=== PATIENT | male | born 1940 | race Caucasian/White ===

== ENCOUNTER 2016-10-24 18:19 | Inpatient (IN) | payer OTHER, MEDICARE ==
[~2016-10-24] VITALS: Ht 160 cm; Wt 74.1 kg
[~2016-10-24 18:19] MED LIST: ACIFEX; ASPI-515 PO; ATOR10TA PO; HYDR25TA6 PO; METF500T PO; PIOG15TA9 PO
[2016-10-24] MEDS ORDERED: SITA25TA PO (19:12)
[2016-10-24] MEDS ORDERED: HYDR-2440 PO (19:12)
[2016-10-24 20:10] LABS: ASPARTATE AMINO TRANSFERASE 24 U/L (15-37); BLOOD UREA NITROGEN 58 mg/dL (7-18)
[2016-10-24 20:16] LABS: IS PT STATUS REG ER OR PRE ER? YES
[2016-10-24] MEDS ORDERED: SODIUM CHLORIDE 0.9% 1,000ML IVBOLUS ONE ×2 (22:00→23:00)
[2016-10-24] MEDS ORDERED: SODIUM CHLORIDE FLUSH 10ML SYR IVF ONE (22:00)
[2016-10-24] MEDS ORDERED: CEFTRIAXONE PMX 1GM/50ML 50 ML ONE (22:56)
[2016-10-24] MEDS ORDERED: ATORVASTATIN 10 MG TABLET PO PRN (23:00)
[2016-10-24] MEDS ORDERED: LISI5TAB7 PO (23:03)
[2016-10-24] MEDS ORDERED: SODIUM CHLORIDE 0.9% 1,000 ML IV SCH (23:10)
[2016-10-24] MEDS ORDERED: DEXTROSE 50%, 50ML SYRINGE IVPush PRN (23:30)
[2016-10-24] MEDS ORDERED: POLYETHYLENE GLYCOL 17 GM PACKET PO PRN (23:30)
[2016-10-24] MEDS ORDERED: DEXTROSE 4 GM TAB.CHEW PO PRN (23:30)
[2016-10-24] MEDS ORDERED: GLUCAGON 1 MG IM PRN (23:30)
[2016-10-24] MEDS ORDERED: LABETALOL 5MG/ML 40ML VIAL IVPush PRN (23:30)
[2016-10-24] MEDS ORDERED: morphine SULFATE 10 MG/ML, 1ML IVPush PRN (23:30)
[2016-10-24] MEDS ORDERED: DOCUSATE 100 MG CAPSULE PO PRN (23:30)
[2016-10-24] MEDS ORDERED: CEFTRIAXONE 1,000 MG in SODIUM CHLORIDE 0.9% 50 ML IV SCH (23:30)
[2016-10-24] MEDS ORDERED: BISACODYL 10 MG SUPP PR PRN (23:30)
[2016-10-24] MEDS ORDERED: ONDANSETRON 2MG/ML, 2ML IVPush PRN (23:30)
[2016-10-24] MEDS ORDERED: ACETAMINOPHEN 325 MG TABLET PO PRN (23:30)
[2016-10-24] MEDS ORDERED: CEFTRIAXONE 1,000 MG in SODIUM CHLORIDE 0.9% 50 ML IV ONE (23:30)
[2016-10-25] MEDS ORDERED: CEFTRIAXONE PMX 1GM/50ML 50 ML IV SCH (00:38)
[2016-10-25 01:22] VITALS: BP 145/71
[2016-10-25] MEDS: HEPARIN 5,000 UNITS/ML, 1ML SQ SCH ×3 (01:46→20:28)
[2016-10-25 02:00] VITALS: BP 145/71
[2016-10-25 03:18] LABS: BLOOD UREA NITROGEN 50 mg/dL (7-18)
[2016-10-25] MEDS: INSULIN ASPART 100 UNITS/ML, PEN SQ-INSULIN SCH ×4 (07:00→21:07)
[2016-10-25] MEDS: SODIUM CHLORIDE FLUSH 10ML SYR IVF SCH ×2 (08:42→21:06)
[2016-10-25] MEDS: ASPIRIN 81 MG TABLET EC PO SCH (08:42)
[2016-10-25 08:50] VITALS: BP 147/71
[2016-10-25] MEDS: OXYcodone/APAP 10/325MG TABLET PO PRN ×2 (11:39→21:06)
[2016-10-25] MEDS: SODIUM CHLORIDE 0.45% 1,000 ML IV SCH (11:45)
[2016-10-25] MEDS: CEFTRIAXONE PMX 1GM/50ML 50 ML IV SCH (12:59)
[2016-10-25 15:00] VITALS: BP 139/72
[2016-10-25 19:29] VITALS: BP 159/79
[2016-10-25] MEDS: ATORVASTATIN 10 MG TABLET PO SCH (21:06)
[2016-10-26] MEDS: SODIUM CHLORIDE 0.45% 1,000 ML IV SCH (00:55)
[2016-10-26] MEDS: CEFTRIAXONE PMX 1GM/50ML 50 ML IV SCH ×2 (00:56→11:43)
[2016-10-26 00:59] VITALS: BP 133/59
[2016-10-26 01:44] VITALS: BP 145/66
[2016-10-26] MEDS: HEPARIN 5,000 UNITS/ML, 1ML SQ SCH ×3 (04:09→22:03)
[2016-10-26 06:22] LABS: BLOOD UREA NITROGEN 30 mg/dL (7-18)
[2016-10-26] MEDS: INSULIN ASPART 100 UNITS/ML, PEN SQ-INSULIN SCH ×4 (07:00→21:00)
[2016-10-26] MEDS: ASPIRIN 81 MG TABLET EC PO SCH (07:57)
[2016-10-26] MEDS: SODIUM CHLORIDE FLUSH 10ML SYR IVF SCH ×2 (07:57→22:03)
[2016-10-26] MEDS: OXYcodone/APAP 10/325MG TABLET PO PRN ×2 (07:57→18:27)
[2016-10-26 08:17] VITALS: BP 172/78
[2016-10-26] MEDS: SITAGLIPTIN 25MG TABLET PO SCH (11:00)
[2016-10-26] MEDS: AMLODIPINE 5 MG TABLET PO SCH ×2 (11:43→22:04)
[2016-10-26 13:55] VITALS: BP 196/83
[2016-10-26 19:02] VITALS: BP 163/83
[2016-10-26] MEDS: ATORVASTATIN 10 MG TABLET PO SCH (22:03)
[2016-10-27] MEDS: CEFTRIAXONE PMX 1GM/50ML 50 ML IV SCH ×2 (01:13→08:36)
[2016-10-27] MEDS: OXYcodone/APAP 10/325MG TABLET PO PRN (01:17)
[2016-10-27 02:51] VITALS: BP 185/95
[2016-10-27 04:44] VITALS: BP 162/81
[2016-10-27] MEDS: HEPARIN 5,000 UNITS/ML, 1ML SQ SCH (05:17)
[2016-10-27 05:50] LABS: BLOOD UREA NITROGEN 17 mg/dL (7-18)
[2016-10-27] MEDS: INSULIN ASPART 100 UNITS/ML, PEN SQ-INSULIN SCH (07:00)
[2016-10-27 07:01] VITALS: BP 159/81
[2016-10-27] MEDS ORDERED: AMLO10TA4 PO (07:30)
[2016-10-27] MEDS ORDERED: CEFD300C37 PO (07:30)
[2016-10-27] MEDS: SITAGLIPTIN 25MG TABLET PO SCH (08:37)
[2016-10-27] MEDS: ASPIRIN 81 MG TABLET EC PO SCH (08:37)
[2016-10-27] MEDS: SODIUM CHLORIDE FLUSH 10ML SYR IVF SCH (09:00)
[2016-10-27] MEDS ORDERED: AMLODIPINE 5 MG TABLET PO SCH (09:00)
== END 2016-10-27 10:05 | disposition home or self-care (01) | DRG 871 ==
LOC: ED 20:19 → EDIP 22:43 → 4EST 10-25 00:31 → DCLOUNGE 10-27 09:45
PROVIDERS: ADMIT Internal Medicine
DX: A41.9 Sepsis, unspecified organism (principal); G93.41 Metabolic encephalopathy; N17.0 Acute kidney failure with tubular necrosis; E87.2 Acidosis; N12 Tubulo-interstitial nephritis, not specified as acute or chronic; E87.5 Hyperkalemia; E11.22 Type 2 diabetes mellitus with diabetic chronic kidney disease; N18.9 Chronic kidney disease, unspecified; E11.65 Type 2 diabetes mellitus with hyperglycemia; E78.5 Hyperlipidemia, unspecified; I25.10 Atherosclerotic heart disease of native coronary artery without angina pectoris; M19.90 Unspecified osteoarthritis, unspecified site; I70.1 Atherosclerosis of renal artery; G89.29 Other chronic pain; Z66 Do not resuscitate; I12.9 Hypertensive chronic kidney disease with stage 1 through stage 4 chronic kidney disease, or unspecified chronic kidney disease; M48.06 Spinal stenosis, lumbar region; Z79.84 Long term (current) use of oral hypoglycemic drugs; M54.5 Low back pain
CPT/HCPCS: 36415; 70450; 71010; 72148; 74176; 76770; 80048; 80053; 81001; 82436; 82570; 82962; 83605; 84133; 84145; 84300; 84484; 85025; 87040; 87086; 93005; 96365; J0696; J1644; J1815; J7030

== ENCOUNTER 2016-10-30 14:14 | Inpatient (IN) | payer OTHER, MEDICARE ==
[~2016-10-30] VITALS: Ht 160 cm; Wt 74.3 kg
[~2016-10-30 14:14] MED LIST changes: -ALPR1TAB6 PO; -ATOR40TA78 PO; -GABA300C10 PO; -GABA600T2 PO; -GLIP5TAB22 PO; -METH750T2 PO; -RABE20TA26 PO; -SITA50TA PO
[2016-10-30 15:15] VITALS: BP 100/60
[2016-10-30] MEDS ORDERED: [UNRECOGNIZED DRUG - OTHER] PO SCH (16:00)
[2016-10-30] MEDS ORDERED: ONDANSETRON 2MG/ML, 2ML IVPush PRN (16:00)
[2016-10-30] MEDS ORDERED: ATORVASTATIN 10 MG TABLET PO PRN (16:00)
[2016-10-30] MEDS ORDERED: BISACODYL 10 MG SUPP PR PRN (16:00)
[2016-10-30] MEDS ORDERED: ACETAMINOPHEN PO SCH (16:00)
[2016-10-30] MEDS ORDERED: DOCUSATE 100 MG CAPSULE PO PRN (16:00)
[2016-10-30] MEDS ORDERED: POLYETHYLENE GLYCOL 17 GM PACKET PO PRN (16:00)
[2016-10-30] MEDS ORDERED: HYDROCODONE BIT PO SCH (16:00)
[2016-10-30] MEDS ORDERED: ACETAMINOPHEN 325 MG TABLET PO PRN (16:00)
[2016-10-30] MEDS ORDERED: GLUCAGON 1 MG IM PRN (16:30)
[2016-10-30] MEDS ORDERED: DEXTROSE 50%, 50ML SYRINGE IVPush PRN (16:30)
[2016-10-30] MEDS ORDERED: DEXTROSE 4 GM TAB.CHEW PO PRN (16:30)
[2016-10-30] MEDS: HEPARIN 5,000 UNITS/ML, 1ML SQ SCH (17:28)
[2016-10-30] MEDS: SODIUM CHLORIDE 0.9% 1,000 ML IV SCH (17:28)
[2016-10-30 20:00] VITALS: BP 125/80
[2016-10-30] MEDS: INSULIN ASPART 100 UNITS/ML, PEN SQ-INSULIN SCH (20:22)
[2016-10-30] MEDS: SODIUM CHLORIDE FLUSH 10ML SYR IVF SCH (20:28)
[2016-10-30] MEDS: OXYcodone/APAP 10/325MG TABLET PO PRN (20:29)
[2016-10-31 02:00] VITALS: BP 132/62
[2016-10-31] MEDS: SODIUM CHLORIDE 0.9% 1,000 ML IV SCH ×3 (03:46→23:30)
[2016-10-31] MEDS: HEPARIN 5,000 UNITS/ML, 1ML SQ SCH ×3 (05:07→21:27)
[2016-10-31 06:07] LABS: BLOOD UREA NITROGEN 45 mg/dL (7-18)
[2016-10-31 06:11] LABS: ASPARTATE AMINO TRANSFERASE 50 U/L (15-37)
[2016-10-31] MEDS: INSULIN ASPART 100 UNITS/ML, PEN SQ-INSULIN SCH ×4 (07:00→21:00)
[2016-10-31] MEDS: SODIUM CHLORIDE FLUSH 10ML SYR IVF SCH ×2 (08:18→21:27)
[2016-10-31 08:27] VITALS: BP 142/66
[2016-10-31] MEDS: ASPIRIN 81 MG TABLET EC PO SCH (08:33)
[2016-10-31] MEDS: AMLODIPINE 5 MG TABLET PO SCH (08:33)
[2016-10-31] MEDS: OXYcodone/APAP 10/325MG TABLET PO PRN ×2 (08:33→18:31)
[2016-10-31] MEDS ORDERED: CEFDINIR 300 MG CAPSULE PO SCH (09:00)
[2016-10-31 12:30] VITALS: BP 162/71
[2016-10-31] MEDS ORDERED: ERGOCALCIFEROL 50,000 UNIT CAPSULE PO SCH (15:30)
[2016-10-31] MEDS: CEFTRIAXONE PMX 1GM/50ML 50 ML IV SCH (16:23)
[2016-10-31 19:17] VITALS: BP 148/68
[2016-11-01] MEDS: OXYcodone/APAP 10/325MG TABLET PO PRN ×3 (00:27→20:24)
[2016-11-01 02:41] VITALS: BP 171/70
[2016-11-01] MEDS: HEPARIN 5,000 UNITS/ML, 1ML SQ SCH ×3 (05:51→20:24)
[2016-11-01 06:37] LABS: BLOOD UREA NITROGEN 34 mg/dL (7-18)
[2016-11-01] MEDS: INSULIN ASPART 100 UNITS/ML, PEN SQ-INSULIN SCH ×4 (07:00→20:25)
[2016-11-01 07:30] VITALS: BP 174/73
[2016-11-01] MEDS: SODIUM CHLORIDE FLUSH 10ML SYR IVF SCH ×2 (07:37→20:24)
[2016-11-01] MEDS: AMLODIPINE 5 MG TABLET PO SCH (08:10)
[2016-11-01] MEDS: ASPIRIN 81 MG TABLET EC PO SCH (08:10)
[2016-11-01] MEDS: SODIUM CHLORIDE 0.9% 1,000 ML IV SCH ×2 (08:12→20:24)
[2016-11-01] MEDS ORDERED: GLIP5TAB22 PO (09:58)
[2016-11-01] MEDS ORDERED: METH750T2 PO (10:04)
[2016-11-01] MEDS ORDERED: ALPR1TAB6 PO (10:04)
[2016-11-01] MEDS ORDERED: GABA300C10 PO (10:04)
[2016-11-01] MEDS ORDERED: RABE20TA26 PO (10:04)
[2016-11-01] MEDS ORDERED: ATOR40TA78 PO (10:04)
[2016-11-01] MEDS ORDERED: GABA600T2 PO (10:04)
[2016-11-01] MEDS ORDERED: SITA50TA PO (10:04)
[2016-11-01 12:35] VITALS: BP 136/67
[2016-11-01] MEDS: CEFTRIAXONE PMX 1GM/50ML 50 ML IV SCH (17:34)
[2016-11-01] MEDS ORDERED: BISACODYL 10 MG SUPP PR PRN (19:00)
[2016-11-01] MEDS ORDERED: DEXTROSE 4 GM TAB.CHEW PO PRN (19:00)
[2016-11-01] MEDS ORDERED: DEXTROSE 50%, 50ML SYRINGE IVPush PRN (19:00)
[2016-11-01 19:30] VITALS: BP 167/64
[2016-11-02 00:29] VITALS: BP 154/67
[2016-11-02] MEDS: OXYcodone/APAP 10/325MG TABLET PO PRN ×2 (04:50→11:52)
[2016-11-02] MEDS: SODIUM CHLORIDE 0.9% 1,000 ML IV SCH (04:50)
[2016-11-02] MEDS: HEPARIN 5,000 UNITS/ML, 1ML SQ SCH ×2 (04:50→13:00)
[2016-11-02 05:54] LABS: BLOOD UREA NITROGEN 17 mg/dL (7-18)
[2016-11-02] MEDS: INSULIN ASPART 100 UNITS/ML, PEN SQ-INSULIN SCH ×2 (07:00→11:00)
[2016-11-02 07:59] VITALS: BP 182/76
[2016-11-02] MEDS ORDERED: ASPIRIN 81 MG TABLET EC PO SCH (09:00)
[2016-11-02] MEDS: AMLODIPINE 5 MG TABLET PO SCH (09:49)
[2016-11-02] MEDS: SODIUM CHLORIDE FLUSH 10ML SYR IVF SCH (09:49)
[2016-11-02 12:50] VITALS: BP 150/72
[2016-11-02] MEDS ORDERED: CEFDINIR 300 MG CAPSULE PO SCH (15:30)
[2016-11-02] MEDS ORDERED: TAMS-11 PO (15:32)
== END 2016-11-02 17:00 | disposition home or self-care (01) | DRG 694 ==
LOC: 4EST 14:42 → DCLOUNGE 11-02 16:38
PROC: 0T9B70Z Drainage of Bladder with Drainage Device, Via Natural or Artificial Opening (ICD-10-PCS; principal; 2016-10-30)
DX: N13.30 Unspecified hydronephrosis (principal); N17.9 Acute kidney failure, unspecified; E11.9 Type 2 diabetes mellitus without complications; E55.9 Vitamin D deficiency, unspecified; E78.5 Hyperlipidemia, unspecified; G89.29 Other chronic pain; Z66 Do not resuscitate; N30.90 Cystitis, unspecified without hematuria; I11.9 Hypertensive heart disease without heart failure; I25.10 Atherosclerotic heart disease of native coronary artery without angina pectoris; M54.9 Dorsalgia, unspecified; Z95.5 Presence of coronary angioplasty implant and graft; Z90.01 Acquired absence of eye; Z87.442 Personal history of urinary calculi; Z79.82 Long term (current) use of aspirin; Z79.899 Other long term (current) drug therapy; Z79.84 Long term (current) use of oral hypoglycemic drugs; Z82.49 Family history of ischemic heart disease and other diseases of the circulatory system
CPT/HCPCS: 36415; 74176; 80048; 80053; 81001; 82306; 82436; 82550; 82570; 82962; 83735; 83970; 84100; 84133; 84300; 84550; 85025; 87086; J0696; J1644; J7030

== ENCOUNTER → 2016-10-30 | Outpatient (CLI) | payer OTHER ==
[~2016-10-30] MED LIST changes: +ALPR1TAB6 PO; +AMLO10TA4 PO; +ATOR40TA78 PO; +CEFD300C37 PO; +GABA300C10 PO; +GABA600T2 PO; +GLIP5TAB22 PO; +HYDR-2440 PO; +LISI5TAB7 PO; +METH750T2 PO; +RABE20TA26 PO; +SITA25TA PO; +SITA50TA PO
[2016-10-30 10:30] LABS: BLOOD UREA NITROGEN 41 mg/dL (7-18)
== END | disposition home or self-care (01) ==
LOC: LAB 10:07
DX: I12.9 Hypertensive chronic kidney disease with stage 1 through stage 4 chronic kidney disease, or unspecified chronic kidney disease (principal); N18.9 Chronic kidney disease, unspecified; N17.9 Acute kidney failure, unspecified
CPT/HCPCS: 36415; 80048

== ENCOUNTER → 2016-11-13 | Outpatient (CLI) | payer MEDICARE, OTHER ==
[~2016-11-13] MED LIST changes: +ALPR1TAB6 PO; +ATOR40TA78 PO; +GABA300C10 PO; +GABA600T2 PO; +GLIP5TAB22 PO; +LISI-170 PO; +METF500T4 PO; +METH750T2 PO; +RABE20TA26 PO; +RABE20TA5 PO; +SITA50TA PO; +TAMS-11 PO
[2016-11-13 10:21] LABS: BLOOD UREA NITROGEN 29 mg/dL (7-18)
[2016-11-13 10:25] LABS: ASPARTATE AMINO TRANSFERASE 26 U/L (15-37)
[2016-11-13 12:12] LABS: DIFF TOTAL CELLS COUNTED 100 CELL DIFF
[2016-11-13 12:39] LABS: VERIFY COUNTS? YES
== END | disposition home or self-care (01) ==
LOC: STAR 08:35
PROVIDERS: ATTEND Orthopaedic Surgery Orthopaedic Surgery of the Spine
DX: Z01.818 Encounter for other preprocedural examination (principal); M48.06 Spinal stenosis, lumbar region; M43.16 Spondylolisthesis, lumbar region; R79.1 Abnormal coagulation profile
CPT/HCPCS: 36415; 80053; 81001; 85025; 85610; 85651; 85730

== ENCOUNTER 2016-11-20 05:43 | Inpatient (IN) | payer OTHER, MEDICARE ==
[2016-11-13 09:09] VITALS: BP 182/77
[~2016-11-20] VITALS: Ht 160 cm; Wt 75.2 kg
[2016-11-20] MEDS ORDERED: VANCOMYCIN PMX 1GM/200ML 200 ML IV STA (06:16)
[2016-11-20] MEDS ORDERED: LACTATED RINGERS 1,000 ML IV SCH (06:34)
[2016-11-20] MEDS ORDERED: LIDOCAINE 1%, 2ML SQ PRN (07:00)
[2016-11-20] MEDS ORDERED: BUPIVACAINE/PF-EPI 0.5% 1:200K ONE (07:07)
[2016-11-20] MEDS ORDERED: THROMBIN 20,000 UNIT VIAL TP ONE (07:07)
[2016-11-20] MEDS ORDERED: VANCOMYCIN 1,000 MG ONE (07:07)
[2016-11-20] MEDS ORDERED: BACITRACIN 50,000 UNIT ONE (07:08)
[2016-11-20] MEDS ORDERED: MIDAZOLAM 1 MG/ML, 2ML ONE (07:31)
[2016-11-20] MEDS ORDERED: FENTANYL PF 250 MCG/5ML ONE (07:31)
[2016-11-20] MEDS ORDERED: REMIFENTANIL 2 MG ONE (07:55)
[2016-11-20] MEDS ORDERED: CEFAZOLIN 1,000 MG ONE (08:08)
[2016-11-20] MEDS ORDERED: PROPOFOL 10 MG/ML, 20ML ONE (08:08)
[2016-11-20] MEDS ORDERED: ONDANSETRON 2MG/ML, 2ML ONE (08:08)
[2016-11-20] MEDS ORDERED: SUCCINYLCHOLINE 20 MG/ML, 10ML ONE (08:08)
[2016-11-20] MEDS ORDERED: ROCURONIUM 10 MG/ML ONE (08:08)
[2016-11-20] MEDS ORDERED: DEXAMETHASONE 4 MG/ML, 1ML ONE (08:08)
[2016-11-20] MEDS ORDERED: PROPOFOL 10 MG/ML, 50ML ONE (08:08)
[2016-11-20] MEDS ORDERED: BUPIVACAINE/PF-EPI 0.5% 1:200K INFIL ONE (09:06)
[2016-11-20] MEDS ORDERED: ACETAMINOPHEN 325 MG TABLET PO PRN ×2 (10:30→14:30)
[2016-11-20] MEDS ORDERED: METOPROLOL 1 MG/ML, 5ML IV PRN (10:30)
[2016-11-20] MEDS ORDERED: PROMETHAZINE 25 MG/ML, 1ML IV PRN (10:30)
[2016-11-20] MEDS ORDERED: hydrALAzine 20 MG/ML, 1ML IV PRN (10:30)
[2016-11-20] MEDS ORDERED: LABETALOL 5MG/ML, 20ML IV PRN ×2 (10:30→14:30)
[2016-11-20] MEDS ORDERED: FENTANYL PF 100 MCG/2ML IV PRN (10:30)
[2016-11-20] MEDS ORDERED: OXYcodone 5 MG/5 ML ORAL.SOL UDC PO PRN (10:30)
[2016-11-20] MEDS ORDERED: ONDANSETRON 2MG/ML, 2ML IVPush PRN (10:30)
[2016-11-20] MEDS ORDERED: EPHEDRINE 50 MG/ML, 1ML IVPush PRN (10:30)
[2016-11-20] MEDS ORDERED: ALBUTEROL SULFATE 2.5 MG/3 ML NPPB PRN (10:30)
[2016-11-20] MEDS ORDERED: HYDROcodone/APAP 7.5-325MG/15ML UDC PO PRN (10:30)
[2016-11-20] MEDS ORDERED: OXYcodone 5 MG/5 ML ORAL.SOL UDC ONE (12:31)
[2016-11-20] MEDS ORDERED: HYDROmorphone 1 MG/ML, 1ML ONE (12:31)
[2016-11-20] MEDS ORDERED: FENTANYL PF 100 MCG/2ML ONE (12:31)
[2016-11-20] MEDS ORDERED: ACETAMINOPHEN 650 MG/20.3 ML UDC ONE (12:31)
[2016-11-20] MEDS: HYDROmorphone 1 MG/ML, 1ML IV PRN ×2 (12:36→12:54)
[2016-11-20] MEDS ORDERED: DIPHENHYDRAMINE 50 MG/ML, 1ML IM PRN (14:30)
[2016-11-20] MEDS ORDERED: DIPHENHYDRAMINE 50 MG CAPSULE PO PRN (14:30)
[2016-11-20] MEDS ORDERED: DIAZEPAM 5 MG TABLET PO PRN (14:30)
[2016-11-20] MEDS ORDERED: ONDANSETRON 2MG/ML, 2ML IV PRN (14:30)
[2016-11-20] MEDS ORDERED: SODIUM CHLORIDE 0.9% 1,000ML IVBOLUS PRN (14:30)
[2016-11-20] MEDS ORDERED: morphine SULFATE 10 MG/ML, 1ML IV PRN (14:30)
[2016-11-20] MEDS ORDERED: BISACODYL 10 MG SUPP PR PRN (14:30)
[2016-11-20] MEDS ORDERED: PROMETHAZINE 25 MG/ML, 1ML IM PRN (14:30)
[2016-11-20] MEDS ORDERED: DIPHENHYDRAMINE 50 MG/ML, 1ML IVPush PRN (14:30)
[2016-11-20] MEDS ORDERED: OXYcodone IR 5MG TABLET PO PRN (14:30)
[2016-11-20] MEDS ORDERED: MAGNESIUM HYDROXIDE 8%, 30ML UDC PO PRN (14:30)
[2016-11-20] MEDS ORDERED: DIAZEPAM 5 MG/ML, 2ML IV PRN (14:30)
[2016-11-20] MEDS ORDERED: ACETAMINOPHEN 650 MG SUPP PR PRN (14:30)
[2016-11-20] MEDS: INSULIN REGULAR 100 UNITS/ML, 3ML VIAL SQ-INSULIN SCH ×2 (16:00→22:03)
[2016-11-20] MEDS: metFORMIN 500 MG TABLET PO SCH (17:30)
[2016-11-20] MEDS: NS + 20MEQ KCL 1,000 ML IV SCH (17:30)
[2016-11-20 19:24] VITALS: BP 147/71
[2016-11-20] MEDS: LISINOPRIL 20 MG TABLET PO SCH (22:03)
[2016-11-20] MEDS: ATORVASTATIN 40 MG TABLET PO SCH (22:03)
[2016-11-20] MEDS: GABAPENTIN 300 MG CAPSULE PO SCH (22:03)
[2016-11-21] VITALS: BP 145/74
[2016-11-21] MEDS: NS + 20MEQ KCL 1,000 ML IV SCH ×3 (02:24→22:00)
[2016-11-21] MEDS: OXYcodone IR 5MG TABLET PO PRN ×4 (03:25→21:35)
[2016-11-21 03:26] VITALS: BP 143/78
[2016-11-21 07:06] VITALS: BP 125/69
[2016-11-21] MEDS: INSULIN REGULAR 100 UNITS/ML, 3ML VIAL SQ-INSULIN SCH ×4 (07:56→21:35)
[2016-11-21] MEDS: SITAGLIPTIN 50MG TABLET PO SCH (08:18)
[2016-11-21] MEDS: metFORMIN 500 MG TABLET PO SCH ×2 (08:18→17:07)
[2016-11-21] MEDS: AMLODIPINE 5 MG TABLET PO SCH (08:19)
[2016-11-21] MEDS: GABAPENTIN 300 MG CAPSULE PO SCH ×2 (08:19→21:34)
[2016-11-21] MEDS: SENNA/DOCUSATE TABLET PO SCH (08:20)
[2016-11-21] MEDS: LISINOPRIL 20 MG TABLET PO SCH ×2 (08:20→21:34)
[2016-11-21] MEDS: PANTOPROZOLE 40MG TABLET PO SCH (08:20)
[2016-11-21] MEDS: HYDROCHLOROTHIAZIDE 25 MG TABLET PO SCH (08:21)
[2016-11-21] MEDS: TAMSULOSIN 0.4 MG CAP.ER.24H PO SCH (08:21)
[2016-11-21] MEDS ORDERED: DOCUSATE 100 MG CAPSULE PO SCH (11:19)
[2016-11-21] MEDS ORDERED: DEXAMETHASONE 4 MG/ML, 1ML IV PRN (11:30)
[2016-11-21] MEDS ORDERED: POLYETHYLENE GLYCOL 17 GM PACKET PO PRN (11:30)
[2016-11-21] MEDS ORDERED: OXYcodone IR 5MG TABLET PO PRN (12:00)
[2016-11-21] MEDS ORDERED: DEXTROSE 50%, 50ML SYRINGE ONE ×3 (12:06→21:24)
[2016-11-21] MEDS ORDERED: DEXTROSE 50%, 50ML SYRINGE IVPush ONE (14:00)
[2016-11-21 14:22] VITALS: BP 145/72
[2016-11-21 19:25] VITALS: BP 114/61
[2016-11-21] MEDS: DOCUSATE 100 MG CAPSULE PO SCH (21:33)
[2016-11-21] MEDS: ATORVASTATIN 40 MG TABLET PO SCH (21:34)
[2016-11-21] MEDS ORDERED: DEXTROSE 50%, 50ML SYRINGE IVPush PRN (22:00)
[2016-11-21] MEDS ORDERED: GLUCAGON 1 MG IM PRN (22:30)
[2016-11-22] MEDS: OXYcodone IR 5MG TABLET PO PRN ×5 (02:58→22:15)
[2016-11-22] MEDS: DEXTROSE 4 GM TAB.CHEW PO PRN (03:14)
[2016-11-22 03:43] VITALS: BP 124/75
[2016-11-22 05:26] LABS: BLOOD UREA NITROGEN 25 mg/dL (7-18)
[2016-11-22] MEDS: INSULIN REGULAR 100 UNITS/ML, 3ML VIAL SQ-INSULIN SCH ×4 (07:33→21:00)
[2016-11-22 07:58] VITALS: BP 140/60
[2016-11-22] MEDS: PANTOPROZOLE 40MG TABLET PO SCH (08:07)
[2016-11-22] MEDS: GABAPENTIN 300 MG CAPSULE PO SCH ×2 (09:42→22:21)
[2016-11-22] MEDS: SITAGLIPTIN 50MG TABLET PO SCH (09:42)
[2016-11-22] MEDS: SENNA/DOCUSATE TABLET PO SCH (09:42)
[2016-11-22] MEDS: LISINOPRIL 20 MG TABLET PO SCH ×2 (09:42→22:22)
[2016-11-22] MEDS: AMLODIPINE 5 MG TABLET PO SCH (09:43)
[2016-11-22] MEDS: metFORMIN 500 MG TABLET PO SCH ×2 (09:43→16:36)
[2016-11-22] MEDS: TAMSULOSIN 0.4 MG CAP.ER.24H PO SCH (09:43)
[2016-11-22] MEDS: HYDROCHLOROTHIAZIDE 25 MG TABLET PO SCH (09:43)
[2016-11-22] MEDS: KETOROLAC 30 MG/1 ML IV PRN ×2 (09:43→22:17)
[2016-11-22] MEDS: DOCUSATE 100 MG CAPSULE PO SCH ×2 (09:43→22:20)
[2016-11-22 15:10] VITALS: BP 114/71
[2016-11-22 18:58] VITALS: BP 126/73
[2016-11-22] MEDS ORDERED: MAGNESIUM HYDROXIDE 8%, 30ML UDC PO PRN (20:00)
[2016-11-22] MEDS ORDERED: DIAZEPAM 5 MG/ML, 2ML IV PRN (20:00)
[2016-11-22] MEDS ORDERED: LABETALOL 5MG/ML, 20ML IV PRN ×2 (20:00)
[2016-11-22] MEDS ORDERED: ACETAMINOPHEN 650 MG SUPP PR PRN ×2 (20:00)
[2016-11-22] MEDS ORDERED: DEXTROSE 50%, 50ML SYRINGE IVPush PRN (20:00)
[2016-11-22] MEDS ORDERED: DIPHENHYDRAMINE 50 MG/ML, 1ML IM PRN (20:00)
[2016-11-22] MEDS ORDERED: ACETAMINOPHEN 325 MG TABLET PO PRN ×2 (20:00)
[2016-11-22] MEDS ORDERED: DIPHENHYDRAMINE 50 MG/ML, 1ML IVPush PRN (20:00)
[2016-11-22] MEDS ORDERED: POLYETHYLENE GLYCOL 17 GM PACKET PO PRN (20:00)
[2016-11-22] MEDS ORDERED: DEXAMETHASONE 4 MG/ML, 1ML IV PRN (20:00)
[2016-11-22] MEDS ORDERED: PROMETHAZINE 25 MG/ML, 1ML IM PRN (20:00)
[2016-11-22] MEDS ORDERED: DIAZEPAM 5 MG TABLET PO PRN (20:00)
[2016-11-22] MEDS ORDERED: ONDANSETRON 2MG/ML, 2ML IV PRN ×2 (20:00)
[2016-11-22] MEDS ORDERED: BISACODYL 10 MG SUPP PR PRN (20:00)
[2016-11-22] MEDS ORDERED: DIPHENHYDRAMINE 50 MG CAPSULE PO PRN (20:00)
[2016-11-22] MEDS ORDERED: GLUCAGON 1 MG IM PRN (20:00)
[2016-11-22] MEDS ORDERED: morphine SULFATE 10 MG/ML, 1ML IV PRN ×2 (20:00)
[2016-11-22] MEDS: ATORVASTATIN 40 MG TABLET PO SCH (22:21)
[2016-11-23 02:03] VITALS: BP 110/65
[2016-11-23] MEDS ORDERED: LABETALOL 5MG/ML, 20ML IV PRN (05:00)
[2016-11-23] MEDS: OXYcodone IR 5MG TABLET PO PRN ×4 (06:29→21:11)
[2016-11-23] MEDS: KETOROLAC 30 MG/1 ML IV PRN ×2 (06:29→21:11)
[2016-11-23] MEDS: DEXTROSE 4 GM TAB.CHEW PO PRN (06:34)
[2016-11-23] MEDS: INSULIN REGULAR 100 UNITS/ML, 3ML VIAL SQ-INSULIN SCH ×4 (06:53→21:00)
[2016-11-23 07:14] LABS: BLOOD UREA NITROGEN 27 mg/dL (7-18)
[2016-11-23 08:07] VITALS: BP 109/65
[2016-11-23] MEDS: TAMSULOSIN 0.4 MG CAP.ER.24H PO SCH (10:32)
[2016-11-23] MEDS: DOCUSATE 100 MG CAPSULE PO SCH ×2 (10:33→21:00)
[2016-11-23] MEDS: GABAPENTIN 300 MG CAPSULE PO SCH ×2 (10:33→21:01)
[2016-11-23] MEDS: HYDROCHLOROTHIAZIDE 25 MG TABLET PO SCH (10:33)
[2016-11-23] MEDS: AMLODIPINE 5 MG TABLET PO SCH (10:33)
[2016-11-23] MEDS: LISINOPRIL 20 MG TABLET PO SCH ×2 (10:33→21:02)
[2016-11-23] MEDS: SITAGLIPTIN 50MG TABLET PO SCH (10:34)
[2016-11-23] MEDS: PANTOPROZOLE 40MG TABLET PO SCH (10:34)
[2016-11-23] MEDS: SENNA/DOCUSATE TABLET PO SCH (10:34)
[2016-11-23] MEDS: metFORMIN 500 MG TABLET PO SCH ×2 (10:34→16:20)
[2016-11-23 13:40] VITALS: BP 136/62
[2016-11-23 19:29] VITALS: BP 120/72
[2016-11-23] MEDS: ATORVASTATIN 40 MG TABLET PO SCH (21:01)
[2016-11-24 01:48] VITALS: BP 118/74
[2016-11-24] MEDS: INSULIN REGULAR 100 UNITS/ML, 3ML VIAL SQ-INSULIN SCH ×4 (06:23→21:00)
[2016-11-24] MEDS: OXYcodone IR 5MG TABLET PO PRN ×3 (06:26→21:47)
[2016-11-24 07:05] VITALS: BP 127/60
[2016-11-24] MEDS: metFORMIN 500 MG TABLET PO SCH ×2 (08:31→16:53)
[2016-11-24] MEDS: GABAPENTIN 300 MG CAPSULE PO SCH ×2 (08:31→21:42)
[2016-11-24] MEDS: SENNA/DOCUSATE TABLET PO SCH ×2 (08:31→08:33)
[2016-11-24] MEDS: TAMSULOSIN 0.4 MG CAP.ER.24H PO SCH (08:31)
[2016-11-24] MEDS: PANTOPROZOLE 40MG TABLET PO SCH (08:31)
[2016-11-24] MEDS: DOCUSATE 100 MG CAPSULE PO SCH ×3 (08:31→21:41)
[2016-11-24] MEDS: SITAGLIPTIN 50MG TABLET PO SCH (08:31)
[2016-11-24 09:47] LABS: BLOOD UREA NITROGEN 31 mg/dL (7-18)
[2016-11-24 13:30] VITALS: BP 123/56
[2016-11-24] MEDS: AMLODIPINE 5 MG TABLET PO SCH (15:22)
[2016-11-24] MEDS: LISINOPRIL 20 MG TABLET PO SCH ×2 (15:23→21:42)
[2016-11-24] MEDS: HYDROCHLOROTHIAZIDE 25 MG TABLET PO SCH (15:23)
[2016-11-24 19:53] VITALS: BP 145/71
[2016-11-24] MEDS: ATORVASTATIN 40 MG TABLET PO SCH (21:41)
[2016-11-25 01:15] VITALS: BP 131/67
[2016-11-25] MEDS: OXYcodone IR 5MG TABLET PO PRN ×2 (05:50→10:49)
[2016-11-25] MEDS: PANTOPROZOLE 40MG TABLET PO SCH (08:28)
[2016-11-25] MEDS: TAMSULOSIN 0.4 MG CAP.ER.24H PO SCH (08:28)
[2016-11-25] MEDS: metFORMIN 500 MG TABLET PO SCH (08:28)
[2016-11-25] MEDS: AMLODIPINE 5 MG TABLET PO SCH (08:28)
[2016-11-25] MEDS: SITAGLIPTIN 50MG TABLET PO SCH (08:28)
[2016-11-25] MEDS: LISINOPRIL 20 MG TABLET PO SCH (08:28)
[2016-11-25] MEDS: HYDROCHLOROTHIAZIDE 25 MG TABLET PO SCH (08:28)
[2016-11-25] MEDS: GABAPENTIN 300 MG CAPSULE PO SCH (08:28)
[2016-11-25] MEDS: INSULIN REGULAR 100 UNITS/ML, 3ML VIAL SQ-INSULIN SCH ×2 (08:28→10:52)
[2016-11-25] MEDS: DOCUSATE 100 MG CAPSULE PO SCH (08:29)
[2016-11-25] MEDS: SENNA/DOCUSATE TABLET PO SCH (08:29)
[2016-11-25 08:44] VITALS: BP 155/75
[2016-11-25 09:50] LABS: BLOOD UREA NITROGEN 27 mg/dL (7-18)
[2016-11-25] MEDS ORDERED: OXYC20TA2 PO (10:25)
[2016-11-25] MEDS ORDERED: CEPH-368 PO (10:26)
[2016-11-25] MEDS ORDERED: DIAZ5TAB PO (10:26)
[2016-11-25 10:59] VITALS: BP 149/65
== END 2016-11-25 11:50 | disposition home or self-care (01) | DRG 460 ==
LOC: ORIP 05:43 → 4NOR 14:00 → DCLOUNGE 11-25 11:26
PROVIDERS: ADMIT Orthopaedic Surgery Orthopaedic Surgery of the Spine; ATTEND Orthopaedic Surgery Orthopaedic Surgery of the Spine
PROC: 01NB0ZZ Release Lumbar Nerve, Open Approach (ICD-10-PCS; 2016-11-20)
PROC: 4A11X4G Monitoring of Peripheral Nervous Electrical Activity, Intraoperative, External Approach (ICD-10-PCS; 2016-11-20)
PROC: 0SG00A1 (ICD-10-PCS; principal; 2016-11-20 08:00)
DX: M48.06 Spinal stenosis, lumbar region (principal); I10 Essential (primary) hypertension; E11.9 Type 2 diabetes mellitus without complications; E78.5 Hyperlipidemia, unspecified; M43.16 Spondylolisthesis, lumbar region; M54.16 Radiculopathy, lumbar region
CPT/HCPCS: 36415; 72100; 80048; 82962; 85025; C1713; J0690; J1100; J1170; J1885; J2250; J2270; J2405; J2704; J3010; J3370; J3480; J3490; C1760; C1762; C1763; C9362; J0330; J7120

== ENCOUNTER 2016-12-23 18:37 | Inpatient (IN) | payer OTHER, MEDICARE ==
[~2016-12-23] VITALS: Ht 160 cm; Wt 71.7 kg
[~2016-12-23 18:37] MED LIST changes: +CEPH-368 PO; +DIAZ5TAB PO; +OXYC20TA2 PO; +PIOG15TA22 PO; -PIOG15TA9 PO; +RABE20TA18 PO; -RABE20TA5 PO
[2016-12-23] MEDS ORDERED: SODIUM CHLORIDE 0.9% 1,000ML IVBOLUS ONE (19:00)
[2016-12-23 19:37] LABS: PATH.CAST-FLAG NOT PRESENT; SPERM-FLAG NOT PRESENT; SRC-FLAG NOT PRESENT; XTAL-FLAG NOT PRESENT; YLC-FLAG NOT PRESENT
[2016-12-23 19:47] LABS: HEMATOCRIT 34.7 % (39.2-51.8); HEMOGLOBIN 11.5 g/dL (13.7-18.0)
[2016-12-23 19:57] LABS: ASPARTATE AMINO TRANSFERASE 15 U/L (15-37); BLOOD UREA NITROGEN 25 mg/dL (7-18)
[2016-12-23] MEDS ORDERED: PIPERACILLIN/TAZO/PMX 3.375GM 50 ML IV ONE (20:30)
[2016-12-23] MEDS ORDERED: PIPERACILLIN/TAZO/PMX 3.375GM 50 ML ONE (21:07)
[2016-12-23] MEDS ORDERED: ONDANSETRON 2MG/ML, 2ML IVPush PRN (21:30)
[2016-12-23] MEDS ORDERED: POLYETHYLENE GLYCOL 17 GM PACKET PO PRN (21:30)
[2016-12-23] MEDS ORDERED: ACETAMINOPHEN 325 MG TABLET PO PRN (21:30)
[2016-12-23] MEDS ORDERED: BISACODYL 10 MG SUPP PR PRN (21:30)
[2016-12-23] MEDS: INSULIN ASPART 100 UNITS/ML, PEN SQ-INSULIN SCH (21:30)
[2016-12-23] MEDS: HEPARIN 5,000 UNITS/ML, 1ML SQ SCH (22:46)
[2016-12-23] MEDS: CEFTRIAXONE PMX 1GM/50ML 50 ML IV SCH (22:47)
[2016-12-23] MEDS: GABAPENTIN 300 MG CAPSULE PO SCH (22:47)
[2016-12-23] MEDS: SODIUM CHLORIDE 0.9% 1,000 ML IV SCH (22:47)
[2016-12-23] MEDS: ATORVASTATIN 40 MG TABLET PO SCH (22:47)
[2016-12-23] MEDS: PANTOPROZOLE 40MG TABLET PO SCH (22:48)
[2016-12-24 00:10] VITALS: BP 124/64
[2016-12-24 00:53] LABS: PATH.CAST-FLAG NOT PRESENT; SPERM-FLAG NOT PRESENT; SRC-FLAG NOT PRESENT; XTAL-FLAG NOT PRESENT; YLC-FLAG NOT PRESENT
[2016-12-24 05:39] LABS: ASPARTATE AMINO TRANSFERASE 14 U/L (15-37); BLOOD UREA NITROGEN 24 mg/dL (7-18)
[2016-12-24] MEDS: HEPARIN 5,000 UNITS/ML, 1ML SQ SCH ×3 (05:43→23:07)
[2016-12-24 05:45] LABS: HEMATOCRIT 29.1 % (39.2-51.8); HEMOGLOBIN 9.5 g/dL (13.7-18.0); WHITE BLOOD COUNT 17.7 x10^3/uL (3.4-10)
[2016-12-24] MEDS: INSULIN ASPART 100 UNITS/ML, PEN SQ-INSULIN SCH ×4 (07:00→20:14)
[2016-12-24 07:35] VITALS: BP 128/72
[2016-12-24] MEDS: SENNA/DOCUSATE TABLET PO SCH (10:32)
[2016-12-24] MEDS: TAMSULOSIN 0.4 MG CAP.ER.24H PO SCH (10:32)
[2016-12-24] MEDS: AMLODIPINE 5 MG TABLET PO SCH (10:32)
[2016-12-24] MEDS: SODIUM CHLORIDE 0.9% 1,000 ML IV SCH (10:32)
[2016-12-24] MEDS: GABAPENTIN 300 MG CAPSULE PO SCH ×2 (10:32→20:09)
[2016-12-24] MEDS ORDERED: MAGNESIUM SULFATE PMX 2GM/50ML 50 ML IV ONE (13:00)
[2016-12-24 13:45] LABS: IS PT STATUS REG ER OR PRE ER? NO
[2016-12-24 13:56] VITALS: BP 112/56
[2016-12-24] MEDS ORDERED: CALCIUM CARBONATE 500 MG TABLET PO ONE (14:30)
[2016-12-24] MEDS: DOXYCYCLINE 100 MG in DEXTROSE 5% 250 ML IV SCH (16:09)
[2016-12-24 19:26] VITALS: BP 157/64
[2016-12-24 19:38] LABS: IS PT STATUS REG ER OR PRE ER? NO
[2016-12-24] MEDS: PANTOPROZOLE 40MG TABLET PO SCH (20:09)
[2016-12-24] MEDS: ATORVASTATIN 40 MG TABLET PO SCH (20:09)
[2016-12-24] MEDS: CEFTRIAXONE PMX 1GM/50ML 50 ML IV SCH (23:06)
[2016-12-24] MEDS: OXYcodone/APAP 10/325MG TABLET PO PRN (23:36)
[2016-12-25 02:00] VITALS: BP 133/63
[2016-12-25] MEDS: DOXYCYCLINE 100 MG in DEXTROSE 5% 250 ML IV SCH ×2 (03:19→16:03)
[2016-12-25] MEDS: SODIUM CHLORIDE 0.9% 1,000 ML IV SCH ×2 (03:19→13:24)
[2016-12-25 03:45] LABS: HEMATOCRIT 26.8 % (39.2-51.8); HEMOGLOBIN 8.8 g/dL (13.7-18.0); WHITE BLOOD COUNT 13.5 x10^3/uL (3.4-10)
[2016-12-25 03:52] LABS: BLOOD UREA NITROGEN 17 mg/dL (7-18)
[2016-12-25 04:02] LABS: IS PT STATUS REG ER OR PRE ER? NO
[2016-12-25] MEDS: INSULIN ASPART 100 UNITS/ML, PEN SQ-INSULIN SCH ×4 (07:00→22:12)
[2016-12-25 08:04] VITALS: BP 128/63
[2016-12-25] MEDS: HEPARIN 5,000 UNITS/ML, 1ML SQ SCH ×3 (10:18→23:19)
[2016-12-25] MEDS: TAMSULOSIN 0.4 MG CAP.ER.24H PO SCH (10:18)
[2016-12-25] MEDS: OXYcodone/APAP 10/325MG TABLET PO PRN ×2 (10:18→16:02)
[2016-12-25] MEDS: GABAPENTIN 300 MG CAPSULE PO SCH ×2 (10:18→22:12)
[2016-12-25] MEDS: AMLODIPINE 5 MG TABLET PO SCH (10:18)
[2016-12-25] MEDS: SENNA/DOCUSATE TABLET PO SCH (10:19)
[2016-12-25 16:00] VITALS: BP 143/66
[2016-12-25 19:42] VITALS: BP 130/69
[2016-12-25] MEDS: ATORVASTATIN 40 MG TABLET PO SCH (22:12)
[2016-12-25] MEDS: PANTOPROZOLE 40MG TABLET PO SCH (22:12)
[2016-12-25] MEDS: CEFTRIAXONE PMX 1GM/50ML 50 ML IV SCH (23:19)
[2016-12-26 00:45] VITALS: BP 135/66
[2016-12-26] MEDS: SODIUM CHLORIDE 0.9% 1,000 ML IV SCH ×3 (01:38→23:37)
[2016-12-26] MEDS: DOXYCYCLINE 100 MG in DEXTROSE 5% 250 ML IV SCH ×2 (03:28→16:23)
[2016-12-26 05:21] LABS: HEMATOCRIT 28.1 % (39.2-51.8); HEMOGLOBIN 9.2 g/dL (13.7-18.0); WHITE BLOOD COUNT 12.3 x10^3/uL (3.4-10)
[2016-12-26 05:46] LABS: BLOOD UREA NITROGEN 11 mg/dL (7-18)
[2016-12-26] MEDS: OXYcodone/APAP 10/325MG TABLET PO PRN ×3 (06:12→20:53)
[2016-12-26] MEDS: INSULIN ASPART 100 UNITS/ML, PEN SQ-INSULIN SCH ×4 (07:00→20:54)
[2016-12-26 07:56] VITALS: BP 141/66
[2016-12-26] MEDS: TAMSULOSIN 0.4 MG CAP.ER.24H PO SCH (08:20)
[2016-12-26] MEDS: AMLODIPINE 5 MG TABLET PO SCH (08:20)
[2016-12-26] MEDS: GABAPENTIN 300 MG CAPSULE PO SCH ×2 (08:20→20:53)
[2016-12-26] MEDS: SENNA/DOCUSATE TABLET PO SCH (08:20)
[2016-12-26] MEDS: HEPARIN 5,000 UNITS/ML, 1ML SQ SCH ×3 (08:21→23:36)
[2016-12-26] MEDS ORDERED: POTASSIUM CHLORIDE 20 MEQ TAB.ER.PRT PO ONE (15:00)
[2016-12-26 15:24] VITALS: BP 141/64
[2016-12-26 20:00] VITALS: BP 146/75
[2016-12-26] MEDS: ATORVASTATIN 40 MG TABLET PO SCH (20:53)
[2016-12-26] MEDS: PANTOPROZOLE 40MG TABLET PO SCH (20:53)
[2016-12-26] MEDS: CEFTRIAXONE PMX 1GM/50ML 50 ML IV SCH (23:36)
[2016-12-27] MEDS ORDERED: MAGNESIUM SULFATE PMX 2GM/50ML 50 ML IV ONE (01:00)
[2016-12-27 02:00] VITALS: BP 127/60
[2016-12-27] MEDS: DOXYCYCLINE 100 MG in DEXTROSE 5% 250 ML IV SCH (03:58)
[2016-12-27 06:12] LABS: HEMATOCRIT 30.9 % (39.2-51.8); HEMOGLOBIN 10.1 g/dL (13.7-18.0); WHITE BLOOD COUNT 9.8 x10^3/uL (3.4-10)
[2016-12-27 06:19] LABS: BLOOD UREA NITROGEN 9 mg/dL (7-18)
[2016-12-27] MEDS: INSULIN ASPART 100 UNITS/ML, PEN SQ-INSULIN SCH ×2 (07:00→11:00)
[2016-12-27 07:48] VITALS: BP 149/75
[2016-12-27] MEDS: OXYcodone/APAP 10/325MG TABLET PO PRN (07:54)
[2016-12-27] MEDS: HEPARIN 5,000 UNITS/ML, 1ML SQ SCH (07:55)
[2016-12-27] MEDS: AMLODIPINE 5 MG TABLET PO SCH (07:57)
[2016-12-27] MEDS: TAMSULOSIN 0.4 MG CAP.ER.24H PO SCH (07:57)
[2016-12-27] MEDS: SENNA/DOCUSATE TABLET PO SCH (07:57)
[2016-12-27] MEDS: SODIUM CHLORIDE 0.9% 1,000 ML IV SCH (07:57)
[2016-12-27] MEDS: GABAPENTIN 300 MG CAPSULE PO SCH (07:58)
[2016-12-27] MEDS ORDERED: CEFD300C37 PO (11:13)
[2016-12-27] MEDS ORDERED: DOXY100T PO (11:13)
[2016-12-27] MEDS ORDERED: POLYETHYLENE GLYCOL 17 GM PACKET PO PRN (14:30)
[2016-12-27] MEDS ORDERED: ONDANSETRON 2MG/ML, 2ML IVPush PRN (14:30)
[2016-12-27] MEDS ORDERED: BISACODYL 10 MG SUPP PR PRN (14:30)
== END 2016-12-27 12:29 | disposition home or self-care (01) | DRG 871 ==
LOC: ED 20:30 → EDIP 20:41 → 4WST 22:15
PROVIDERS: ADMIT Hospitalist; ATTEND Hospitalist
PROC: 0T9B70Z Drainage of Bladder with Drainage Device, Via Natural or Artificial Opening (ICD-10-PCS; principal; 2016-12-24)
DX: A41.9 Sepsis, unspecified organism (principal); G93.41 Metabolic encephalopathy; N17.0 Acute kidney failure with tubular necrosis; N39.0 Urinary tract infection, site not specified; E44.1 Mild protein-calorie malnutrition; E11.65 Type 2 diabetes mellitus with hyperglycemia; D50.9 Iron deficiency anemia, unspecified; E78.5 Hyperlipidemia, unspecified; H54.42 Blindness, left eye, normal vision right eye; I10 Essential (primary) hypertension; Z96.611 Presence of right artificial shoulder joint; G89.29 Other chronic pain; E87.5 Hyperkalemia; I25.10 Atherosclerotic heart disease of native coronary artery without angina pectoris; I70.1 Atherosclerosis of renal artery; M77.9 Enthesopathy, unspecified; R29.6 Repeated falls; Z79.4 Long term (current) use of insulin; Z87.442 Personal history of urinary calculi; Z95.5 Presence of coronary angioplasty implant and graft; Z68.28 Body mass index [BMI] 28.0-28.9, adult
CPT/HCPCS: 36415; 70450; 71010; 80048; 80053; 81001; 82607; 82746; 82962; 83036; 83605; 83735; 84145; 84443; 84484; 85025; 85610; 87040; 87086; 93005; 96360; 96361; J0696; J1644; J1815; J2543; J7060; J3475; J7030

== ENCOUNTER 2017-04-20 21:18 | Emergency (ER) | payer MEDICARE, OTHER ==
[~2017-04-20] VITALS: Ht 160 cm; Wt 61.4 kg
[~2017-04-20 21:18] MED LIST changes: +DOXY100T PO
[2017-04-20] MEDS ORDERED: HYDROcodone/APAP 5/325 TABLET PO PRN (22:30)
[2017-04-20] MEDS ORDERED: HYDROcodone/APAP 5/325 TABLET ONE (22:34)
[2017-04-20 23:31] VITALS: BP 147/75
== END 2017-04-20 23:33 | disposition home or self-care (01) ==
LOC: ED 23:20
DX: G89.11 Acute pain due to trauma (principal); M25.512 Pain in left shoulder; E11.9 Type 2 diabetes mellitus without complications; M06.9 Rheumatoid arthritis, unspecified; M10.9 Gout, unspecified; M32.9 Systemic lupus erythematosus, unspecified; S09.90XA Unspecified injury of head, initial encounter; W01.0XXA Fall on same level from slipping, tripping and stumbling without subsequent striking against object, initial encounter; Y93.89 Activity, other specified; Y99.8 Other external cause status; Y92.099 Unspecified place in other non-institutional residence as the place of occurrence of the external cause
CPT/HCPCS: 70450; 99284